=== PATIENT | female | born 1955 | race Caucasian/White ===

== ENCOUNTER 2018-03-08 11:30 | Emergency (ER) | payer OTHER ==
[~2018-03-08] VITALS: Ht 175.3 cm; Wt 79.4 kg
[2018-03-08 12:18] LABS: ABSOLUTE BASOPHIL COUNT 0 /CUMM (0.0-0.2); ABSOLUTE EOSINOPHIL COUNT 0.3 /CUMM (0.0-0.7); ABSOLUTE GRANULOCYTE CT 3.4 /CUMM (1.4-6.5); ABSOLUTE LYMPH COUNT 1.4 /CUMM (1.2-3.4); ABSOLUTE MONOCYTE COUNT 0.4 /CUMM (0.10-0.60); BASOPHIL % 0.6 % (0.0-2.0); EOSINOPHIL % 5.3 % (0-5); GRANULOCYTE % 60.9 % (42.2-75.2); HEMATOCRIT 44.3 % (37-47); MEAN CORPUSCULAR HGB 32.6 PG (27.0-31.0); MEAN CORPUSCULAR HGB CONC 34.1 G/DL (33.0-37.0); MEAN CORPUSCULAR VOLUME 95.4 FL (81.0-99.0); MEAN PLATELET VOLUME 8.1 FL (7.4-10.4); PLATELET COUNT 423 /CUMM (130-400); RBC DISTRIBUTION WIDTH 12.9 % (11.5-14.5); RED BLOOD CELL CT 4.64 /CUMM (4.20-5.40); WHITE BLOOD CELL COUNT 5.6 /CUMM (4.8-10.8)
[2018-03-08] MEDS ORDERED: ACIPHEX20 M1 PO (12:28)
[2018-03-08] MEDS ORDERED: CYMBALTA60 M1 PO (12:28)
[2018-03-08] MEDS ORDERED: HYDROCHLOROTH12.5 M3 PO (12:28)
[2018-03-08] MEDS ORDERED: AMLODIPINE BESY10 M1 PO (12:29)
[2018-03-08] MEDS ORDERED: OSPHENA60 M1 PO (12:29)
[2018-03-08] MEDS ORDERED: GABAPENTIN100 M2 PO (12:30)
--- NOTE | 2018-03-08 12:35 | ED NECK/BACK PAIN COMPLAINT ---
History of Present Illness General Chief Complaint: Low Back Pain/Injury Stated Complaint: "EXCRUSIATING PAIN IN MY WHOLE BACK" PER PT Source: patient Exam Limitations: no limitations Allergies Coded Allergies: NO KNOWN ALLERGIES (12/30/10) Reconcile Medications Amlodipine Besylate 10 MG TABLET 1 TAB PO DAILY HEART (Reported) Duloxetine HCl (Cymbalta) 60 MG CAPSULE.DR 1 CAP PO DAILY UNKNOWN (Reported) Gabapentin 100 MG CAPSULE 2 CAP PO DAILY UNKNOWN (Reported) Hydrochlorothiazide 12.5 MG CAPSULE 1 CAP PO DAILY WATER RETENTION (Reported) Ketorolac Tromethamine 10 MG TABLET 1 TAB PO Q6P PRN Back Pain Pt received 30 mg IV during ED visit. Ospemifene (Osphena) 60 MG TABLET 1 TAB PO DAILY UNKNOWN (Reported) Rabeprazole Sodium (Aciphex) 20 MG TABLET.DR 1 TAB PO DAILY GI (Reported) Triage Note: PT TO TRIAGE WITH BAND LIKE PAIN AROUND HER BACK AND ABD SINCE MONDAY. PT STATES SHE HAS BEEN IN EXCRUCIATING PAIN GETTING OUT OF BED. PT DENIES FEVERS, DENIES N/V/D. PT HAS A HX OF HERNIA AND HYSTERCTOMY. PT IS PRESSURE SENSITIVE TO HER BACK. Triage Nurses Notes Reviewed? yes HPI: Ms. Faustin is a 62-year-old female that comes into the emergency department complaining of lower back pain. Patient states this pain started suddenly on Monday, located in her flanks and lower back bilaterally, 8 out of 10 in intensity when present, though throbbing in nature worsened by movement and resolution at rest. Patient states the pain does not impede her ambulation. Patient denies any trauma to the site, fever, numbing, tingling sensation, radiation to the lower extremity, changes in her defecation/urination, recent weight loss, night sweats, chills. (Donald Camacho MD,[facility]) Vital Signs & Intake/Output Vital Signs & Intake/Output Vital Signs Date Time Temp Pulse Resp B/P B/P Pulse O2 O2 Flow FiO2 Mean Ox Delivery Rate 03/08 1350 97.8 85 18 104/68 96 Room Air 03/08 1242 Room Air Room Air 03/08 1137 97.6 87 16 109/66 98 Room Air Room Air (Soha MORALES,Mike Javier) Past History Travel History Traveled to [place] past 21 day No Medical History Any Pertinent Medical History? none Neurological: TRIGEMINAL NEURALGIA EENT: NONE Cardiovascular: hypertension Respiratory: NONE Gastrointestinal: ISCHEMIC COLITIS Hepatic: NONE Renal: NONE Musculoskeletal: NONE Psychiatric: NONE Endocrine: NONE Blood Disorders: NONE Cancer(s): NONE INTERMEDIATE PROJECT MANAGER/Reproductive: fibroid Pneumonia Vaccine: 07/31/06 Surgical History Surgical History: non-contributory Psychosocial History Who do you live with Family Services at Home None What is your primary language Belarusian Tobacco Use: Never used ETOH Use: occasional use Illicit Drug Use: denies illicit drug use Family History Hx Contributory? No (Curtis Diaz MD) Review of Systems Review of Systems Constitutional: Reports: see HPI. Eyes: Reports: no symptoms. Ears, Nose, Throat, Mouth: Reports: no symptoms. Respiratory: Reports: no symptoms. Cardiovascular: Reports: no symptoms. Gastrointestinal/Abdominal: Reports: other (Cramping). Musculoskeletal: Reports: see HPI. Skin: Reports: no symptoms. Neurological/Psychological: Reports: no symptoms. All Other Systems: Reviewed and Negative (Curtis Diaz MD) Physical Exam Physical Exam General Appearance: well developed/nourished, no apparent distress, alert, awake , comfortable, mild distress Head: atraumatic, normal appearance Eyes: Bilateral: normal appearance. Ears, Nose, Throat, Mouth: hearing grossly normal Neck: normal inspection, supple, full range of motion Respiratory: normal breath sounds, chest non-tender Cardiovascular: regular rate/rhythm Gastrointestinal: normal bowel sounds, soft, no organomegaly, Slightly tender to palpation on hypogastrium. Back: normal inspection, normal range of motion, no vertebral tenderness, No ecchymoses, rashes or sign of visible trauma. ROM is impaired by pain; No CVA tenderness, no paraspinal tenderness. Extremities: non-tender, normal range of motion, negative straight leg test, No pain on ambulation: tiptoes or heels. Straight Leg Raising: Right: Negative. Left: Negative. Neurologic/Psych: no motor/sensory deficits, awake, alert, oriented x 3, normal gait, normal mood/affect Skin: intact, normal color Core Measures CVA/TIA Diagnosis: No (Curtis Diaz MD) Progress Differential Diagnosis: Lumbalgia (Curtis Diaz MD) Plan of Care: Orders Procedure Date/time Status URINALYSIS 03/08 114 Active TROPONIN LEVEL 03/08 114 Complete LIPASE 03/08 114 Complete LACTIC ACID 03/08 114 Complete COMPREHENSIVE METABOLIC PANEL 03/08 114 Complete CBC WITHOUT DIFFERENTIAL 03/08 1141 Complete EKG 03/08 1141 Active Laboratory Tests 03/08/18 1441: Lactic Acid Cancelled 03/08/18 1154: Anion Gap 8, Estimated GFR > 60, BUN/Creatinine Ratio 31.4 H, Glucose 113 H, Lactic Acid 1.1, Calcium 10.0, Total Bilirubin 0.7, AST 26, ALT 27, Alkaline Phosphatase 95, Troponin I < 0.01, Total Protein 7.6, Albumin 4.3, Globulin 3.3, Albumin/Globulin Ratio 1.3, Lipase 63, CBC w Diff NO MAN DIFF REQ, RBC 4.64, MCV 95.4, MCH 32.6 H, MCHC 34.1, RDW 12.9, MPV 8.1, Gran % 60.9, Lymphocytes % 25.4 , Monocytes % 7.8, Eosinophils % 5.3 H, Basophils % 0.6, Absolute Granulocytes 3.4, Absolute Lymphocytes 1.4, Absolute Monocytes 0.4, Absolute Eosinophils 0.3, Absolute Basophils 0 (Soha MORALES,Mike Javier) Departure Departure Disposition: HOME OR SELF CARE Condition: Stable Clinical Impression Primary Impression: Lumbago Qualifiers: Chronicity: acute Back pain laterality: bilateral Sciatica presence : without sciatica Qualified Code: M54.5 - Low back pain Referrals: Frandy Ken MD (PCP/Family) Additional Instructions: Please follow up with your Primary Care Provider about this ED visit. Should symptoms worsen, please return to the emergency department. Departure Forms: Customer Survey General Discharge Information Prescriptions: Current Visit Scripts Ketorolac Tromethamine 1 TAB PO Q6P PRN Back Pain #20 TAB Pt received 30 mg IV during ED visit. (Donald Camacho MD,[facility]) Resident Co-Sign Statement Statement: ED Attending supervision documentation- [x] I saw and evaluated the patient. I have also reviewed all the pertinent lab results and diagnostic results. I agree with the findings and the plan of care as documented in the Resident's documentation. [] I have reviewed the ED Record and agree with the Resident's documentation. [] Additions or exceptions (if any) to the Resident's note and plan are summarized below: [] (Soha MORALES,Mike Javier)
--- NOTE | 2018-03-08 14:41 | CT SCAN REPORT ---
EXAMINATION: CT ABDOMEN AND PELVIS WITH CONTRAST CLINICAL INFORMATION: Severe back pain. COMPARISON: CT of the abdomen and pelvis done on 12/07/2011. TECHNIQUE: Multidetector volumetric imaging was performed of the abdomen and pelvis following IV administration of 95 mL of Optiray 320 intravenous contrast. Sagittal and coronal reformatted images were obtained on the technologist's workstation. DLP: 333.70 mGy-cm. FINDINGS: LUNG BASES: The visualized lung bases are unremarkable. 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 A previously documented second hypervascular lesion at 4B of left lobe of the liver is not visualized. The remainder of the liver otherwise appears unremarkable. The gallbladder is unremarkable with no evidence of radiopaque gallstones, gallbladder wall thickening, or obvious pericholecystic inflammatory changes. PANCREAS: Unremarkable. SPLEEN: Unremarkable. ADRENAL GLANDS: Unremarkable. KIDNEYS AND URETERS: The kidneys are normal in size, shape, and attenuation. No hydronephrosis, hydroureter, or calculi seen. No perinephric stranding. An exophytic 2.3 cm maximum dimension hypodensity is noted at the superior pole of the left kidney with Hounsfield value of 23, most consistent with an incidental cyst. BLADDER: Unremarkable. GASTROINTESTINAL TRACT: Sigmoid colonic diverticulosis related changes are noted without any CT features of superimposed acute diverticulitis. Significant fecal residual is noted within the large bowel. The appendix is visualized at right lower quadrant of the abdomen and is unremarkable. The small bowel loops as well as the stomach appear decompressed. ABDOMINAL WALL: Postsurgical changes of prior left-sided inguinal hernia repair is noted without any evidence of recurrence. LYMPH NODES: No pathologically enlarged retroperitoneal, mesenteric, pelvic and/or inguinal, groin lymphadenopathy present. VASCULAR: Mild atherosclerotic disease is noted within the aorta without evidence of any aneurysm formation. PELVIC VISCERA: There is no pelvic mass present. There is no free fluid and/or free air present. OSSEOUS STRUCTURES: Moderate mid lumbar levoscoliosis is present with superimposed multilevel [id number] degenerative spondylosis. The degree of scoliosis as well as degenerative spondylosis shows interval progression. IMPRESSION: 1. No acute intra-abdominal and/or intrapelvic pathology is present. 2. Scoliosis and multilevel degenerative spondylosis related changes are noted within the spine, shows interval progression since 12/17/2011.
[2018-03-08] MEDS ORDERED: KETOROLAC TROME10 M1 PO (15:59)
[2018-03-08 16:10] VITALS: BP 100/72
== END 2018-03-08 16:10 ==
LOC: ERH 11:30
PROVIDERS: Physician Assistant Medical
DX: M54.5 Low back pain (principal)
CPT/HCPCS: 74177; 93005; 93010; 96374; J1885